=== PATIENT | female | born 1985 | race African-American/Black ===

== ENCOUNTER 2024-08-29 17:44 | Emergency (ER) | payer MEDICAID ==
[~2024-08-29] VITALS: Ht 157.5 cm; Wt 128.1 kg
[2024-08-29 20:22] LABS: Basophils # (auto) 0 10 ^3/uL (0-0.2); Eosinophils # (auto) 0.2 10 ^3/uL (0-0.8); Hemoglobin 11.5 g/dL (12.2-16.2); Monocytes # (auto) 0.7 10 ^3/uL (0-1.3); White Blood Cell 6.2 10^3/uL (4.4-10.8)
[2024-08-29 20:24] LABS: Basophils % (auto) 0.8 % (0.0-2.0); Eosinophils % (auto) 3.4 % (0.0-7.0); Hematocrit 36.1 % (36.0-46.0); Lymphocytes # (auto) 2.7 10 ^3/uL (0.4-5.4); Lymphocytes % (auto) 43.8 % (10.0-50.0); Mean Corpuscular Hemoglobin 22.7 pg (28.0-32.0); Mean Corpuscular Hgb Conc. 31.9 g/dL (32.0-36.0); Mean Corpuscular Volume 71.2 fL (80.0-100.0); Monocytes % (auto) 10.8 % (0.0-12.0); Neutrophils # (auto) 2.5 10 ^3/uL (1.6-8.6); Neutrophils % (auto) 41.2 % (37.0-80.0); Nucleated Red Blood Cells % 0.1 %; Platelet Count (auto) 361 10^3/uL (140-450); Red Blood Cells 5.07 10^6/uL (4.0-5.20); Red Cell Distribution Width 18.3 % (11.8-14.3)
[2024-08-29 20:37] LABS: Chloride 110 mmol/L (98-107); Potassium 3.8 mmol/L (3.5-5.1); Sodium 143 mmol/L (136-145)
[2024-08-29 20:38] LABS: Anion Gap 6 (5-15); Calcium 9.4 mg/dL (8.7-10.4); Carbon Dioxide 27 mmol/L (20-31)
[2024-08-29 20:43] LABS: BUN/Creatinine Ratio 12.2 (10.0-20.0); Blood Urea Nitrogen 14 mg/dL (9-23); Glucose 86 mg/dL (74-106)
[2024-08-29] MEDS: IOHEXOL 350 MG/ML 100ML IJ ONE (21:35)
--- NOTE | 2024-08-29 22:18 | DVH ---
INDICATION: Elevated D-dime, PULMONARY EMBOLUS COMPARISON: No prior cTAs of the chest for comparison. TECHNIQUE: Multidetector CTA of the chest was performed of the chest with 100 cc of intravenous contr ast. PULMONARY ANGIOGRAPHY PROTOCOL was utilized using a bolus-tracking technique centered on the sulma n pulmonary artery. Axial, coronal and sagittal multiplanar and MIP reformats were performed. Radiation Dose Information: CT Dose: CTDI volume is 46.96 mGy. Dose-length product is 1043.1 mGy*cm The dose indicators for CT are the volume Computed Tomography (CT) Dose Index (CTDIvol) and the Dose Length Product (DLP), and are measured in units of mGy and mGy-cm, respectively. These indicators are not patient dose, but values generated from the CT scanner acquisition factors. The report includes radiation exposure data for exposures received during this examination. Findings: Pulmonary artery: Normal caliber of the pulmonary artery. No large central or large segmental pulmo nary embolism. Lower neck: Normal thyroid. Lungs: No focal consolidation, pulmonary mass, or suspicious pulmonary nodule. Heart/Vascular Structures: Normal heart size. Normal caliber and enhancement of the aorta. Lymph Nodes: No adenopathy Pleura: No pleural effusion or significant pneumothorax. Musculoskeletal: No acute osseous abnormality. Upper abdomen: Limited portions of the upper abdomen are unremarkable. IMPRESSION: 1. No pulmonary embolism. 2. No acute intrathoracic abnormality. 3. No findings of pulmonary artery hypertension.
--- NOTE | 2024-08-29 22:37 | ED.PDOC ---
History of Present Illness HPI Comments This patient is a pleasant but severely morbidly obese 39-year-old female who arrives to the ED today for evaluation of abnormal laboratory values. Patient was seen at another facility and informed that she had an elevated D-dimer and therefore, would need to come to the ED for evaluation and a rule out of a pulmonary emboli. Patient denies any shortness of breath or chest pain concerns. Patient denies any fever nausea or vomiting. Patient denies any history of hypercoagulability or pulmonary emboli. Patient was mildly hypertensive on arrival. Chief Complaint: Abnormal LAB's Time Seen by MD: 17:57 Primary Care Provider: Patti Reviewed Notes: Nurses Notes Allergies: Coded Allergies: Ibuprofen (Verified Allergy, Unknown, 04/18/11) Information Source: Patient Mode of Arrival: Ambulatory Severity: None Timing: Hours Duration: Since onset Prehospital treatment: Other (Laboratories) Past Medical History PAST MEDICAL HISTORY: Denies Surgical History: Denies all surgeries ACID RECOVERY OPERATOR History: No Pertinent ACID RECOVERY OPERATOR History Family History Family History: Reviewed,noncontributory to illness, No family hx of Cancer, No family hx of DM, No family hx of Heart alfredo, No family hx of HTN, No family hx ofKidney alfredo, No family hx of Liver alfredo, No family hx of Lung alfredo, No family hx of Stroke Social History Smoker: Non-Smoker Alcohol: Denies ETOH Use Drugs: Denies Drug Use Lives In: Home Constitutional: denies: chills, diaphoresis, fatigue, fever, malaise, sweats, weakness, others EENTM: denies: blurred vision, double vision, ear bleeding, ear discharge, ear drainage, ear pain, ear ringing, eye pain, eye redness, hearing loss, mouth pain, mouth swelling, nasal discharge, nose bleeding, nose congestion, nose pain, photophobia, tearing, throat pain, throat swelling, voice changes, others Respiratory: denies: cough, hemoptysis, orthopnea, SOB at rest, shortness of breath, SOB with excertion, stridor, wheezing, others Cardiovascular: denies: chest pain, dizzy spells, diaphoresis, Dyspnea on exertion, edema, irregular heart beat, left arm pain, lightheadedness, palpitations, PND, syncope, others Gastrointestinal: denies: abdomen distended, abdominal pain, blood streaked bowels, constipated, diarrhea, dysphagia, difficulty swallowing, hematemesis, melena, nausea, poor appetite, poor fluid intake, rectal bleeding, rectal pain, vomiting, others Genitourinary: denies: abnormal vagina bleeding, burning, dyspareunia, dysuria, flank pain, frequency, hematuria, incontinence, pain, , vagina discharge, urgency, others Neurological: denies: dizziness, fainting, headache, left sided numbness, left sided weakness, numbness, paresthesia, pre-existing deficit, right sided numbness, right sided weakness, seizure, speech problems, tingling, tremors, weakness, others Musculoskeletal: denies: back pain, gout, joint pain, joint swelling, muscle pain, muscle stiffness, neck pain, others Integumetry: denies: bruises, change in color, change in hair/nails, dryness, laceration, lesions, lumps, rash, wounds, others Allergic/Immunocompromised: denies: Difficulty Healing, Frequent Infections, Hives, Itching, others Hematologic/Lymphatic: denies: anemia, blood clots, easy bleeding, easy bruising, swollen glands, others Endocrine: denies: excessive hunger, excessive sweating, excessive thirst, excessive urination, flushing, intolerance to cold, intolerance to heat, unexplained weight gain, unexplained weight loss, others Psychiatric: denies: anxiety, bipolar disorder, depression, hopeless, panic disorder, schizophrenia, sleepless, suicidal, others Physical Exam General Appearance: Mild Distress (Moderate distress due to anxiety related to her laboratory information rather than any physiological concerns.), Obese HEENT: Normal ENT Inspection, Pharynx Normal, TMs Normal Neck: Full Range of Motion, Non-Tender, Normal, Normal Inspection Respiratory: Chest Non-Tender, Lungs Clear, No Accessory Muscle Use, No Respiratory Distress, Normal Breath Sounds Cardiovascular: No Edema, No JVD, No Murmur, No Gallop, Normal Peripheral Pulses, Regular Rate/Rhythm Breast Exam: Deferred Gastrointestinal: No Organomegaly, Non Tender, No Pulsatile Mass, Normal Bowel Sounds, Soft Genitalia: Deferred Pelvic: Deferred Rectal: Deferred Extremities: No calf tenderness, Normal capillary refill, Normal inspection, Normal range of motion, Non-tender, No pedal edema Neurologic: Alert, oracle erp developer II-XII nml as Tested, No Motor Deficits, Normal Affect, Normal Mood, No Sensory Deficits Cerebellar Function: Normal Reflexes: Normal Skin: Dry, Normal Color, Warm Lymphatic: No Adenopathy Was a procedure done? Was a procedure done?: No Differential Dx Considerations may include: Pulmonary emboli, sepsis, electrolyte abnormality X-Ray, Labs, Meds, VS Vital Signs Date Time Temp Pulse Resp B/P (MAP) Pulse Ox O2 Delivery O2 Flow Rate FiO2 08/29/24 21:28 Room Air* 0 21 08/29/24 21:25 98.5 63 16 147/87 (107) 97 98.5 08/29/24 18:18 16 98 Room Air* 0 21 08/29/24 18:11 98.6 79 16 149/95 (113) 98 Lab Test 08/29/24 20:00 Range/Units White Blood Count 6.2 4.4-10.8 10^3/uL Red Blood Count 5.07 4.0-5.20 10^6/uL Hemoglobin 11.5 L 12.2-16.2 g/dL Hematocrit 36.1 36.0-46.0 % Mean Corpuscular Volume 71.2 L 80.0-100.0 fL Mean Corpuscular Hemoglobin 22.7 L 28.0-32.0 pg Mean Corpuscular Hemoglobin Concent 31.9 L 32.0-36.0 g/dL Red Cell Distribution Width 18.3 H 11.8-14.3 % Platelet Count 361 140-450 10^3/uL Mean Platelet Volume 7.1 6.9-10.8 fL Neutrophils (%) (Auto) 41.2 37.0-80.0 % Lymphocytes (%) (Auto) 43.8 10.0-50.0 % Monocytes (%) (Auto) 10.8 0.0-12.0 % Eosinophils (%) (Auto) 3.4 0.0-7.0 % Basophils (%) (Auto) 0.8 0.0-2.0 % Neutrophils # (Auto) 2.5 1.6-8.6 10 ^3/uL Lymphocytes # (Auto) 2.7 0.4-5.4 10 ^3/uL Monocytes # (Auto) 0.7 0-1.3 10 ^3/uL Eosinophils # (Auto) 0.2 0-0.8 10 ^3/uL Basophils # (Auto) 0 0-0.2 10 ^3/uL Nucleated Red Blood Cells 0.1 % D-Dimer, Quantitative 1.17 H 0.0-0.49 mg/L FEU Sodium Level 143 136-145 mmol/L Potassium Level 3.8 3.5-5.1 mmol/L Chloride Level 110 H 98-107 mmol/L Carbon Dioxide Level 27 20-31 mmol/L Anion Gap 6 5-15 Blood Urea Nitrogen 14 9-23 mg/dL Creatinine 1.15 H 0.550-1.02 mg/dL Glomerular Filtration Rate Calc 62 >90 mL/min BUN/Creatinine Ratio 12.2 10.0-20.0 Serum Glucose 86 74-106 mg/dL Calcium Level 9.4 8.7-10.4 mg/dL X-Ray, Labs, Meds, VS Comment All studies performed in the ED were evaluated by me personally. Laboratories were remarkable for an elevated D-dimer, but CT angio of the chest was unremarkable for any PE formation. Patient has been advised to continue follow up with her primary care provider for discussions related to today's visit. Time of 1ST Reevaluation: 22:35 Reevaluation 1ST: Unchanged Consultation: PCP Patient Education/Counseling: Diagnosis, Treatment Family Education/Counseling: Diagnosis, Treatment Departure 1 Departure Time of Disposition: 22:36 Impression: Primary Impression: Elevated d-dimer Disposition: 01 HOME / SELF CARE / HOMELESS Condition: Stable Additional Instructions: Advised patient follow up with the primary care provider for discussions related to today's findings. Discharged With: Self, Friend Critical Care Note Critical Care Time?: No Stability Stability form required: No Heart Score Heart Score: Heart Score Response (Comments) Value History N/A 0 EKG N/A 0 Age N/A 0 Risk Factors N/A 0 Troponin N/A 0 Total 0 GUERO LOGAN PAC Aug 29, 2024 22:37
[2024-08-29 23:09] VITALS: BP 156/94; PULSE 51; RESP 18; TEMP 98.1; O2SAT 97
[2024-08-30] MEDS ORDERED: ACETAMINOPHEN IV 100 ML IV ONE (11:38)
== END 2024-08-29 23:10 | disposition home or self-care (01) ==
LOC: ER 17:44
DX: R79.89 Other specified abnormal findings of blood chemistry (principal); Z88.6 Allergy status to analgesic agent
CPT/HCPCS: 36415; 71275; 80048; 85025; 85379; 99285; Q9967